=== PATIENT | male | born 1945 | race Caucasian/White ===

== ENCOUNTER 2017-05-21 16:16 | Emergency (ER) | payer MEDICARE, MEDICAID ==
[2017-05-21 16:57] LABS: ABSOLUTE BASOPHILS # (AUTO) 0.1 10^3/uL (0.0-0.2); ABSOLUTE EOSINOPHILS # (AUTO) 0.1 10^3/uL (0.0-0.6); ABSOLUTE LYMPHOCYTES (AUTO) 0.9 10^3/uL (0.5-4.7); ABSOLUTE MONOCYTES (AUTO) 0.6 10^3/uL (0.1-1.4); ABSOLUTE NEUT (AUTO) 9.1 10^3/uL (1.7-8.2); BASOPHILS % (AUTO) 0.5 % (0-2); EOSINOPHILS % (AUTO) 0.7 % (0-6); HEMATOCRIT 52.4 % (37.9-51.0); HEMOGLOBIN 17.8 g/dL (13.5-17.0); LYMPHOCYTES % (AUTO) 8.2 % (13-45); MEAN CORPUSCULAR HGB CONC 34.1 g/dL (32.0-36.0); MEAN CORPUSCULAR VOLUME 85 fl (80-97); MONOCYTES % (AUTO) 5.7 % (3-13); RED BLOOD COUNT 6.16 10^6/uL (4.35-5.55); SEGMENTED NEUTROPHILS % (AUTO) 84.9 % (42-78); WHITE BLOOD COUNT 10.8 10^3/uL (4.0-10.5)
[2017-05-21 17:22] LABS: ALANINE AMINOTRANSFERASE 21 U/L (21-72); ALBUMIN 4.4 g/dL (3.5-5.0); ALKALINE PHOSPHATASE 127 U/L (38-126); ANION GAP 13 (5-19); ASPARTATE AMINO TRANSFERASE 23 U/L (17-59); BILIRUBIN,DIRECT 0.4 mg/dL (0.0-0.4); BILIRUBIN,TOTAL 1.3 mg/dL (0.2-1.3); BLOOD UREA NITROGEN 14 mg/dL (7-20); CARBON DIOXIDE 26 mmol/L (22-30); CHLORIDE 104 mmol/L (98-107); CREATININE RESULT 1.15 mg/dL (0.52-1.25); GLUCOSE 132 mg/dL (75-110); LIPASE 51.7 U/L (23-300); SODIUM 142.6 mmol/L (137-145)
--- NOTE | 2017-05-21 17:27 | ER Document Report ---
ED GI/ - General Mode of Arrival: Medic Information source: Patient, Relative - TRAVEL OUTSIDE OF THE [place] IN LAST 30 DAYS: No - HPI Patient complains to provider of: Abdominal pain Associated symptoms: Other - See above <ADAM LOYA - Last Filed: 05/21/17 18:56> <ELVIE HUTSON - Last Filed: 05/21/17 22:45> - General Chief Complaint: Abdominal Pain Stated Complaint: ABDOMINAL PAIN Time Seen by Provider: 05/21/17 16:34 Notes: Patient is a 72 year old male, with a past medical history including HTN and kidney stones, who presents to the emergency department complaining of abdominal pain onset this afternoon. Patient reports he was mowing the lawn around 0900 this morning with a push mower, after an hour he took a break and had some Gatorade, a little while later he had a Big Mac and a Mt. Dew. After resting for a half hour patient went outside to visit with his family, when he came back in about 30 minutes later he developed a sharp pain in his left side under his ribs that shoots down into his lower abdomen, per patient had also complained of the pain going into his testicles. Patient reports he felt nauseated and vomited up some of his previous meal. Patient reports the pain is exacerbated by deep breaths. Patient states this does not feel like his previous kidney stones. (ADAM LOYA) - Related Data Allergies/Adverse Reactions: No Known Allergies Allergy (Unverified 02/24/15 15:12) Past Medical History - General Information source: Patient - Social History Smoking Status: Never Smoker Frequency of alcohol use: None Drug Abuse: None Family History: Reviewed & Not Pertinent - Past Medical History Cardiac Medical History: Reports: Hx Hypercholesterolemia, Hx Hypertension Pulmonary Medical History: Reports: Hx Asthma Renal/ Medical History: Reports: Hx Kidney Stones GI Medical History: Reports: Hx Gastroesophageal Reflux Disease Surgical Hx: Negative - Immunizations Hx Diphtheria, Pertussis, Tetanus Vaccination: Yes <ADAM LOYA - Last Filed: 05/21/17 18:56> Review of Systems - Review of Systems Constitutional: No symptoms reported EENT: No symptoms reported Cardiovascular: No symptoms reported Respiratory: No symptoms reported Gastrointestinal: See HPI, Abdominal pain, Nausea, Vomiting Genitourinary: No symptoms reported Male Genitourinary: No symptoms reported Musculoskeletal: No symptoms reported Skin: No symptoms reported Hematologic/Lymphatic: No symptoms reported Neurological/Psychological: No symptoms reported -: Yes All other systems reviewed and negative <ADAM LOYA - Last Filed: 05/21/17 18:56> Physical Exam <ADAM LOYA - Last Filed: 05/21/17 18:56> <ELVIE HUTSON - Last Filed: 05/21/17 22:45> - Vital signs Vitals: Temp Resp 97.5 F 23 H 05/21/17 16:41 05/21/17 16:41 - Notes Notes: GENERAL: Alert, interacts well. No acute distress. HEAD: Normocephalic, atraumatic. EYES: Pupils equal, round, and reactive to light. Extraocular movements intact. ENT: Oral mucosa moist, tongue midline. NECK: Full range of motion. Supple. Trachea midline. LUNGS: Clear to auscultation bilaterally, no wheezes, rales, or rhonchi. No respiratory distress. HEART: Regular rate and rhythm. No murmurs, gallops, or rubs. ABDOMEN: Left lower quadrant tender to palpation. No guarding, rigidity, or rebound. No masses. Non-distended. Bowel sounds present in all 4 quadrants. EXTREMITIES: Moves all 4 extremities spontaneously. No edema, radial and dorsalis pedis pulses 2/4 bilaterally. No cyanosis. NEUROLOGICAL: Alert and oriented x3. Normal speech. PSYCH: Normal affect, normal mood. SKIN: Warm, dry, normal turgor. No rashes or lesions noted. (ADAM LOYA) Course - Laboratory Result Diagrams: 05/21/17 16:45 05/21/17 16:45 <ADAM LOYA - Last Filed: 05/21/17 18:56> - Laboratory Result Diagrams: 05/21/17 16:45 05/21/17 16:45 <ELVIE HUTSON - Last Filed: 05/21/17 22:45> - Re-evaluation Re-evalutation: 05/21/17 19:08 CBC shows hemoconcentration with a white count of 10.8 and hemoglobin 17.8, no true signs of infection, CMP grossly unremarkable, minimally elevated blood sugar 132 and this is not fasting, lipase normal, urinalysis shows trace ketones and large blood. This is consistent with the 4.2 mm partially obstructing calculus in the proximal left ureter however there is contrast identified distal to the calculus on delayed images. The stone should pass on its own, no indication for antibiotics or surgical intervention at this time, patient will to be treated with Percocet, Zofran, Flomax, Pyridium and discharged home with a urine strainer. (ELVIE HUTSON) - Vital Signs Vital signs: Temp Pulse Resp BP Pulse Ox 97.5 F 84 18 165/89 H 96 05/21/17 16:41 05/21/17 19:38 05/21/17 19:38 05/21/17 19:38 05/21/17 19:38 - Laboratory Laboratory results interpreted by me: 05/21/17 05/21/17 05/21/17 16:45 16:45 17:08 WBC 10.8 H RBC 6.16 H Hgb 17.8 H Hct 52.4 H Seg Neutrophils % 84.9 H Lymphocytes % 8.2 L Absolute Neutrophils 9.1 H Glucose 132 H Alkaline Phosphatase 127 H Urine Protein 30 H Urine Ketones TRACE H Urine Blood LARGE H Urine Urobilinogen 4.0 H Discharge <ADAM LOYA - Last Filed: 05/21/17 18:56> <ELVIE HUTSNO - Last Filed: 05/21/17 22:45> - Discharge Clinical Impression: Left ureteral calculus Condition: Stable Disposition: HOME, SELF-CARE Additional Instructions: Kidney Stone You are passing or have passed a kidney stone. These stones are usually due to increased calcium or uric acid concentrations in your urine. Stones within the kidney itself are not painful. The pain occurs as the stone leaves the kidney to pass down the long tube, called the ureter, leading to the bladder. If the stone is small, it will usually pass by itself. Most patients can pass the stone at home. You will usually receive medications for pain, nausea or vomiting, and sometimes a medication to assist in passing the kidney stone. However, if the pain is very severe or if vomiting prevents you from taking oral pain medications, you may need to return for further treatment. Drink three or four quarts of fluids per day. You will be given pain medication (if needed) and urine strainers. Strain all your urine to see if the stone passes. If your doctor has asked you to bring the stone in for analysis, return with the stone once it has passed. Return if pain or vomiting become severe, if you develop a high fever, if you are unable to pass your urine, or if other unusual symptoms occur. Prescriptions: Ondansetron [Zofran Odt 4 mg Tablet] 1 - 2 tab PO Q4H PRN #15 tab.rapdis PRN Reason: For Nausea/Vomiting Oxycodone HCl/Acetaminophen [Percocet 5-325 mg Tablet] 1 - 2 tab PO Q4H PRN #15 tablet PRN Reason: Phenazopyridine HCl [Pyridium 200 mg Tablet] 200 mg PO TID #15 tablet Tamsulosin HCl [Flomax 0.4 mg Cap.sr] 0.4 mg PO DAILY #7 cap.sr.24h Referrals: CHLOE ORANTES MD [Primary Care Provider] - Follow up as needed Scribe Attestation: 05/21/17 22:45 I personally performed the services described in the documentation, reviewed and edited the documentation which was dictated to the scribe in my presence, and it accurately records my words and actions. (ELVIE HUTSON) Scribe Documentation - Scribe Written by Kenton:: kenton Eli, 05/21/17, 1304 acting as scribe for :: Kika <ADAM LOYA - Last Filed: 05/21/17 18:56>
[2017-05-21 17:35] LABS: APPEARANCE,URINE SLIGHTLY-CLOUDY; BILIRUBIN,URINE NEGATIVE (NEGATIVE); GLUCOSE, URINE NEGATIVE (NEGATIVE); KETONES,URINE TRACE mg/dL (NEGATIVE); LEUKOCYTE ESTERASE,URINE NEGATIVE (NEGATIVE); NITRITE,URINE NEGATIVE (NEGATIVE); PROTEIN,URINE 30 mg/dL (NEGATIVE); URINE SPECIFIC GRAVITY 1.013
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
[2017-05-21 19:41] VITALS: BP 165/89
== END 2017-05-21 19:39 | disposition home or self-care (01) ==
LOC: ER 16:16
DX: N20.1 Calculus of ureter (principal); R10.9 Unspecified abdominal pain; I10 Essential (primary) hypertension; E78.00 Pure hypercholesterolemia, unspecified; J45.909 Unspecified asthma, uncomplicated; K21.9 Gastro-esophageal reflux disease without esophagitis; Z87.442 Personal history of urinary calculi
CPT/HCPCS: 36415; 74177; 80053; 81001; 83690; 85025; 99284

== ENCOUNTER 2017-05-25 17:34 | Emergency (ER) | payer MEDICARE, MEDICAID ==
[2017-05-25 17:43] VITALS: BP 161/86
[2017-05-25] MEDS ORDERED: KETOROLAC TROMETHAMINE INJ/PF 30 MG/1 ML SDV IV ONE (17:54)
--- NOTE | 2017-05-25 18:01 | ER Document Report ---
ED General - General Chief Complaint: Flank Pain Stated Complaint: ABDOMINAL PAIN Time Seen by Provider: 05/25/17 17:55 TRAVEL OUTSIDE OF THE [place] IN LAST 30 DAYS: No - HPI Patient complains to provider of: left flank pain Notes: Pleasant man yes or diagnosed with a left renal calculi approximately 2 years ago presents with continued pain. Patient states has moved significantly from the left upper quadrant down to near his left groin. Patient states he was given some Flomax but the pain is very very intense today. Pain was a 10/10 constantly nauseous. Patient states the pain is come down now but was very bad. Patient arrives via EMS. Denies fever chills dysuria or diarrhea. - Related Data Allergies/Adverse Reactions: No Known Allergies Allergy (Verified 05/25/17 17:42) Past Medical History - Social History Smoking Status: Former Smoker Family History: Reviewed & Not Pertinent - Past Medical History Cardiac Medical History: Reports: Hx Hypercholesterolemia, Hx Hypertension Pulmonary Medical History: Reports: Hx Asthma Renal/ Medical History: Reports: Hx Kidney Stones. Denies: Hx Peritoneal Dialysis GI Medical History: Reports: Hx Gastroesophageal Reflux Disease - Immunizations Hx Diphtheria, Pertussis, Tetanus Vaccination: Yes Review of Systems - Review of Systems Constitutional: No symptoms reported EENT: No symptoms reported Cardiovascular: No symptoms reported Respiratory: No symptoms reported Gastrointestinal: No symptoms reported Genitourinary: No symptoms reported Male Genitourinary: No symptoms reported. denies: Testicular pain Musculoskeletal: No symptoms reported, Back pain Skin: No symptoms reported Hematologic/Lymphatic: No symptoms reported Neurological/Psychological: No symptoms reported Physical Exam - Vital signs Vitals: Temp Pulse Resp BP Pulse Ox 97.4 F 93 18 161/86 H 93 05/25/17 17:40 05/25/17 17:40 05/25/17 17:40 05/25/17 17:40 05/25/17 17:40 Interpretation: Normal - General General appearance: Appears well, Alert - HEENT Head: Normocephalic, Atraumatic Eyes: Normal Pupils: PERRL - Respiratory Respiratory status: No respiratory distress Chest status: Nontender Breath sounds: Normal Chest palpation: Normal - Cardiovascular Rhythm: Regular Heart sounds: Normal auscultation Murmur: No - Abdominal Inspection: Normal Distension: No distension Bowel sounds: Normal Tenderness: Nontender Organomegaly: No organomegaly - Back Back: Normal, CVA tenderness - Extremities General upper extremity: Normal inspection, Nontender, Normal color, Normal ROM , Normal temperature General lower extremity: Normal inspection, Nontender, Normal color, Normal ROM , Normal temperature, Normal weight bearing. No: Ben's sign - Neurological Neuro grossly intact: Yes Cognition: Normal Orientation: AAOx4 Zeyad Coma Scale Eye Opening: Spontaneous [place] Coma Scale Verbal: Oriented [place] Coma Scale Motor: Obeys Commands Zeyad Coma Scale Total: 15 Speech: Normal Motor strength normal: LUE, RUE, LLE, RLE Sensory: Normal - Psychological Associated symptoms: Normal affect, Normal mood - Skin Skin Temperature: Warm Skin Moisture: Dry Skin Color: Normal Course - Re-evaluation Re-evalutation: 05/25/17 18:05 Pleasant man with known kidney stone present with more pain. Pain is now resolved given IV ketorolac. Also given prescription for ibuprofen. Patient has access to a great deal of Percocet that he did not like how they made him feel. Encourage patient to try taking ibuprofen and Tylenol - Vital Signs Vital signs: Temp Pulse Resp BP Pulse Ox 97.4 F 93 18 161/86 H 93 05/25/17 17:40 05/25/17 17:40 05/25/17 17:40 05/25/17 17:40 05/25/17 17:40 Discharge - Discharge Clinical Impression: Left ureteral calculus Condition: Stable Disposition: HOME, SELF-CARE Instructions: Kidney Stone ([facility]) Prescriptions: Ibuprofen 800 mg PO Q6H 3 Days
== END 2017-05-25 18:05 | disposition home or self-care (01) ==
LOC: ER 17:34
DX: N20.1 Calculus of ureter (principal); R10.9 Unspecified abdominal pain; Z79.899 Other long term (current) drug therapy; Z87.891 Personal history of nicotine dependence
CPT/HCPCS: 99284; 96374; J1885

== ENCOUNTER 2018-09-22 16:38 | Emergency (ER) | payer MEDICARE, MEDICAID ==
[2018-09-22] MEDS ORDERED: DIPHENHYDRAMINE HCL 25 MG CAPSULE PO ONE (17:43)
[2018-09-22] MEDS ORDERED: PROCHLORPERAZINE MALEATE 10 MG TABLET PO ONE (17:43)
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
--- NOTE | 2018-09-22 18:56 | RADIOLOGY REPORT (SQ) ---
EXAM DESCRIPTION: CT CERVICAL SPINE WITHOUT COMPLETED DATE/TIME: 09/22/2018 6:33 pm REASON FOR STUDY: Pain in the posterior lateral neck/lateral c-spine COMPARISON: None. TECHNIQUE: Axial images acquired through the cervical spine without intravenous contrast. Images re viewed with lung, soft tissue and bone windows. Reconstructed coronal and sagittal MPR images review ed. Images stored on PACS. All CT scanners at this facility use dose modulation, iterative reconstruction, and/or weight based d osing when appropriate to reduce radiation dose to as low as reasonably achievable (ALARA). [facility]: Dose Right [facility]: CareDose [facility]: Dose Right [facility]: Teradose 4D [facility]: [employer] RADIATION DOSE: CT Rad equipment meets quality standard of care and radiation dose reduction techniq ues were employed. CTDIvol: 19.6 mGy. DLP: 417 mGy-cm. mGy. LIMITATIONS: None. FINDINGS: ALIGNMENT: Anatomic. MINERALIZATION: Normal. VERTEBRAL BODIES: No fractures or dislocation. DISCS: Multilevel disc space narrowing with osteophytes. FACETS, LATERAL MASSES, POSTERIOR ELEMENTS: Facet arthropathy. No fractures. No dislocation. No ac native findings. HARDWARE: None in the spine. VISUALIZED RIBS: No fractures. LUNG APICES AND SOFT TISSUES: No significant or acute findings. OTHER: No other significant finding. IMPRESSION: CHRONIC DEGENERATIVE CHANGES. NO ACUTE FINDINGS. TECHNICAL DOCUMENTATION: JOB ID: [id number] Quality ID # [id number]: Final reports with documentation of one or more dose reduction techniques (e.g., Au tomated exposure control, adjustment of the mA and/or kV according to patient size, use of iterative reconstruction technique) 2010 [employer]- All Rights Reserved Reading location - IP/workstation name: [email or web address]
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
[2018-09-22 19:17] LABS: ABSOLUTE EOSINOPHILS # (AUTO) 0.1 10^3/uL (0.0-0.6); ABSOLUTE LYMPHOCYTES (AUTO) 2.2 10^3/uL (0.5-4.7); ABSOLUTE MONOCYTES (AUTO) 0.7 10^3/uL (0.1-1.4); ABSOLUTE NEUT (AUTO) 5.1 10^3/uL (1.7-8.2); BASOPHILS % (AUTO) 0.4 % (0-2); EOSINOPHILS % (AUTO) 1.7 % (0-6); HEMOGLOBIN 18.3 g/dL (13.5-17.0); MEAN CORPUSCULAR HEMOGLOBIN 28.9 pg (27.0-33.4); MEAN CORPUSCULAR HGB CONC 35.1 g/dL (32.0-36.0); MEAN CORPUSCULAR VOLUME 82 fl (80-97); PLATELET COUNT 178 10^3/uL (150-450); RED BLOOD COUNT 6.31 10^6/uL (4.35-5.55); RED CELL DISTRIBUTION WIDTH 14.2 % (11.5-14.0); SEGMENTED NEUTROPHILS % (AUTO) 61.9 % (42-78); TOTAL CELLS COUNTED % (AUTO) 100 %; WHITE BLOOD COUNT 8.3 10^3/uL (4.0-10.5)
[2018-09-22] MEDS ORDERED: FUROSEMIDE INJ/PF 20 MG/2 ML SDV IV ONE (19:17)
[2018-09-22 19:31] LABS: ALANINE AMINOTRANSFERASE 27 U/L (21-72); ALBUMIN 4.3 g/dL (3.5-5.0); ALKALINE PHOSPHATASE 125 U/L (38-126); ANION GAP 15 (5-19); ASPARTATE AMINO TRANSFERASE 30 U/L (17-59); BILIRUBIN,DIRECT 0.3 mg/dL (0.0-0.4); BLOOD UREA NITROGEN 16 mg/dL (7-20); CALCIUM 9.4 mg/dL (8.4-10.2); CARBON DIOXIDE 26 mmol/L (22-30); CHLORIDE 100 mmol/L (98-107); CREATINE KINASE 83 U/L (55-170); GLUCOSE 105 mg/dL (75-110); POTASSIUM 4.4 mmol/L (3.6-5.0); SODIUM 141.4 mmol/L (137-145); TOTAL PROTEIN 8.4 g/dL (6.3-8.2)
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
[2018-09-22 19:47] LABS: CREATINE KINASE MB 1.65 ng/mL (<4.55); NT PRO BNP 113 pg/mL (5-900)
[2018-09-22 19:52] LABS: TROPONIN I < 0.012 ng/mL
[2018-09-22 21:28] VITALS: BP 141/72
== END 2018-09-22 21:29 | disposition home or self-care (01) ==
LOC: ER 16:38
DX: I10 Essential (primary) hypertension (principal); R51 Headache; J45.909 Unspecified asthma, uncomplicated
CPT/HCPCS: 99285; 96374; 36415; 82553; 82550; 85025; 80053; 84484; 83880; 71046; 70450; 72125; A9270 ×2; J1940; S0183

== ENCOUNTER 2019-01-01 06:21 | Day surgery (SDC) | payer MEDICARE, MEDICAID ==
[~2019-01-01 06:21] MED LIST: KETOROLAC TROMETHAMINE 0.45% 4 DROP/0.4 ML DROPERETTE OD PRN
[2019-01-01] MEDS: TETRACAINE HCL 0.5% OPH SOLN 4 ML OD PRN ×3 (06:54→07:25)
[2019-01-01] MEDS: TROPICAMIDE 1% OPH SOLN 3 ML OD PRN ×3 (06:55→07:20)
[2019-01-01] MEDS: CYCLOPENTOLATE 0.2%/PHENYLEPHRINE 1% OPH SOLN 2 ML OD PRN ×3 (06:55→07:20)
[2019-01-01] MEDS: BESIFLOXACIN HCL 0.6% OPH SUSP 5 ML BOTTLE OD PRN ×4 (06:55→07:50)
[2019-01-01] MEDS ORDERED: MIDAZOLAM 2 MG/2 ML INJ ONE (07:15)
[2019-01-01] MEDS ORDERED: EPINEPHRINE INJ/PF 1 MG/1 ML AMPULE ONE (07:16)
[2019-01-01] MEDS ORDERED: LIDOCAINE 1%/PHENYLEPHRINE 1.5% 1 ML VIAL ONE (07:17)
[2019-01-01] MEDS ORDERED: CHONDR SU A NA/HYALUR INTRAOC KIT (SURGICARE) ONE (07:17)
--- NOTE | 2019-01-01 20:23 | [facility] OPERATIVE REPORT E ---
[facility] Operative Report NAME: MYA MEDLEY AGE: 73Y DATE OF SURGERY: 01/01/2019 ROOM: PREOPERATIVE DIAGNOSIS: CATARACT, RIGHT EYE. POSTOPERATIVE DIAGNOSIS: CATARACT, RIGHT EYE. OPERATION: Cataract extraction with insertion of an IOL of the right eye. SURGEON: PAMELA BARBER M.D. ANESTHESIA: Topical. PROCEDURE: After obtaining appropriate consent, the patient's right eye was prepped and draped in sterile fashion as well as the surgeon in a sterile manner and cataract surgery was started. First a paracentesis blade was used to make a side-port incision. Viscoelastic was used to inflate the anterior chamber. Next a 2.4 mm incision was made with a 2.4 mm blade, clear corneal temporally. A continuous capsulorrhexis was made using a cystotome and Utrata forceps. Following this hydrodissection was carried out to make the lens fully loose and mobile and it was rotated 90 degrees. Following this, a bivese-bdj-uonhkna technique was used to phacoemulsify the lens with a CDE of 4.39. The remaining cortex was removed with irrigation/aspiration. Provisc was instilled into the capsular bag to inflate the bag. A SN60WF, 22.5 diopter lens was placed. The remaining viscoelastic material was removed with irrigation/aspiration. Following this, the incision was found to be watertight. Besivance was instilled into the eye and a protective shield was placed over the eye. The patient returned to the postoperative recovery in stable condition. DICTATING PHYSICIAN: PAMELA BARBER M.D. [id number] PHY#: [id number] ID: [id number] JOB#: [id number] ACCT: [id number] cc:PAMELA BARBER M.D. >
--- NOTE | 2019-01-01 20:23 | [facility] DISCHARGE SUMMARY E ---
[facility] Discharge Summary NAME: MYA MEDLEY AGE: 73Y ADMITTED: 01/01/2019 DISCHARGED: 01/01/2019 DIAGNOSIS: Cataract, right eye. SUMMARY: This is a 73-year-old male who underwent cataract extraction, right eye. He underwent surgery because he was having difficulty seeing words on the television. DISCHARGE INSTRUCTIONS: He should be on a regular diet, no bending at his waist, and no heavy lifting. He should use his Vigamox, Ketorolac, and Durezol at 3 p.m. and 8 p.m. and sleep with a rigid shield. I will see him for his 1 day postoperative tomorrow. DICTATING PHYSICIAN: PAMELA BARBER M.D. [id number] PHY#: [id number] ID: [id number] JOB#: [id number] ACCT: [id number] cc:PAMELA BARBER M.D. >
== END 2019-01-01 08:25 | disposition home or self-care (01) ==
LOC: SC 06:21
PROVIDERS: ATTEND Internal Medicine
DX: H25.11 Age-related nuclear cataract, right eye (principal); I10 Essential (primary) hypertension; K21.9 Gastro-esophageal reflux disease without esophagitis; Z79.899 Other long term (current) drug therapy; Z79.82 Long term (current) use of aspirin; F17.210 Nicotine dependence, cigarettes, uncomplicated; G47.30 Sleep apnea, unspecified
CPT/HCPCS: 66984; V2632; J2250; J3490 ×2; A9270; J0171; J2370; 142

== ENCOUNTER 2019-01-20 07:54 | Day surgery (SDC) | payer MEDICARE, MEDICAID ==
[~2019-01-20 07:54] MED LIST changes: -KETOROLAC TROMETHAMINE 0.45% 4 DROP/0.4 ML DROPERETTE OD PRN; +KETOROLAC TROMETHAMINE 0.45% 4 DROP/0.4 ML DROPERETTE OS PRN
[2019-01-20] MEDS ORDERED: CHONDR SU A NA/HYALUR INTRAOC KIT (SURGICARE) ONE (08:14)
[2019-01-20] MEDS ORDERED: LIDOCAINE 1%/PHENYLEPHRINE 1.5% 1 ML VIAL ONE (08:14)
[2019-01-20] MEDS ORDERED: EPINEPHRINE INJ/PF 1 MG/1 ML AMPULE ONE (08:14)
[2019-01-20] MEDS: TETRACAINE HCL 0.5% OPH SOLN 4 ML OS PRN ×3 (08:51→09:24)
[2019-01-20] MEDS: TROPICAMIDE 1% OPH SOLN 3 ML OS PRN ×3 (08:52→09:11)
[2019-01-20] MEDS: BESIFLOXACIN HCL 0.6% OPH SUSP 5 ML BOTTLE OS PRN ×4 (08:52→09:43)
[2019-01-20] MEDS: CYCLOPENTOLATE 0.2%/PHENYLEPHRINE 1% OPH SOLN 2 ML OS PRN ×3 (08:52→09:11)
[2019-01-20] MEDS ORDERED: ONDANSETRON HCL INJ/PF 4 MG/2 ML SDV ONE (09:07)
[2019-01-20] MEDS ORDERED: FENTANYL CITRATE INJ/PF 100 MCG/2 ML AMPUL ONE (09:07)
[2019-01-20] MEDS ORDERED: MIDAZOLAM 2 MG/2 ML INJ ONE (09:07)
[2019-01-20] MEDS: DORZOLAMIDE HCL 2%/TIMOLOL MALEAT 0.5% OPH SOLN 10 ML OS PRN ×2 (09:43)
--- NOTE | 2019-01-20 11:49 | [facility] DISCHARGE SUMMARY E ---
[facility] Discharge Summary NAME: MYA MEDLEY AGE: 73Y ADMITTED: 01/20/2019 DISCHARGED: 01/20/2019 HISTORY: This is a 73-year-old male who underwent cataract extraction of the left eye. DIAGNOSIS: Cataract, left eye. HOSPITAL COURSE: He underwent surgery because he was having difficulty seeing road signs. DISCHARGE INSTRUCTIONS: He should be on a regular diet. No bending at his waist. No heavy lifting. He should use Vigamox, ketorolac, and Pred Forte at 3 p.m. and 8 p.m. and see me for a one day postoperative visit. DICTATING PHYSICIAN: PAMELA BARBER M.D. [id number] PHY#: [id number] ID: [id number] JOB#: [id number] ACCT: [id number] cc:PAMELA BARBER M.D. >
--- NOTE | 2019-01-20 11:49 | [facility] OPERATIVE REPORT E ---
[facility] Operative Report NAME: MYA MEDLEY AGE: 73Y DATE OF SURGERY: 01/20/2019 ROOM: PREOPERATIVE DIAGNOSIS: CATARACT, LEFT EYE. POSTOPERATIVE DIAGNOSIS: CATARACT, LEFT EYE. OPERATION: Cataract extraction with insertion of an IOL of the left eye. SURGEON: PAMELA BARBER M.D. ANESTHESIA: Topical. PROCEDURE: After obtaining appropriate consent, the patient's left eye was prepped and draped in sterile fashion as well as the surgeon in a sterile manner and cataract surgery was started. First a paracentesis blade was used to make a side-port incision. Viscoelastic was used to inflate the anterior chamber. Next a 2.4 mm incision was made with a 2.4 mm blade, clear corneal temporally. A continuous capsulorrhexis was made using a cystotome and Utrata forceps. Following this hydrodissection was carried out to make the lens fully loose and mobile and it was rotated 90 degrees. Following this, a wgajnl-wmr-ezhmakw technique was used to phacoemulsify the lens with a CDE of 5.74. The remaining cortex was removed with irrigation/aspiration. Provisc was instilled into the capsular bag to inflate the bag. A SN60WF, 22.5 diopter lens was placed. The remaining viscoelastic material was removed with irrigation/aspiration. Following this, the incision was found to be watertight. Besivance was instilled into the eye and a protective shield was placed over the eye. The patient returned to the postoperative recovery in stable condition. DICTATING PHYSICIAN: PAMELA BARBER M.D. [id number] PHY#: [id number] ID: [id number] JOB#: [id number] ACCT: [id number] cc:PAMELA BARBER M.D. >
== END 2019-01-20 10:26 | disposition home or self-care (01) ==
LOC: SC 07:54
PROVIDERS: ATTEND Internal Medicine
DX: H25.12 Age-related nuclear cataract, left eye (principal); Z96.1 Presence of intraocular lens; I10 Essential (primary) hypertension; K21.9 Gastro-esophageal reflux disease without esophagitis; G47.30 Sleep apnea, unspecified; Z79.82 Long term (current) use of aspirin; Z79.899 Other long term (current) drug therapy
CPT/HCPCS: 66984; V2632; J2250; J3490 ×2; A9270; J0171; J3010; J2405; J2370; 142

== ENCOUNTER 2019-04-30 07:08 | Emergency (ER) | payer MEDICARE, MEDICAID ==
[2019-04-30] MEDS ORDERED: ONDANSETRON HCL INJ/PF 4 MG/2 ML SDV IV ONE (08:43)
[2019-04-30] MEDS ORDERED: NORMAL SALINE 1000 ML 1,000 ML IV ONE (08:43)
[2019-04-30] MEDS ORDERED: MORPHINE SULFATE 10 MG/ML INJ IV ONE (08:43)
--- NOTE | 2019-04-30 08:50 | ER Document Report ---
ED General - General Chief Complaint: Abdominal Pain >50 Stated Complaint: VOMITING Time Seen by Provider: 04/30/19 08:18 Primary Care Provider: CHLOE ORANTES MD [Primary Care Provider] - Follow up as needed Notes: 74-year-old male with hypertension and a "enlarged heart" presents to the emergency department with chief complaint of left lower quadrant abdominal pain and vomiting x2 since last night. Patient said it began at 11 PM and the pain is constant and sharp. Patient is also complaint of abdominal distention. Patient complains of hot and cold spells, denies fever, denies headache, denies confusion or altered mental status, complains of nausea with vomiting, denies any chest pain or shortness of breath, complained of left flank pain last night that is now migrated to the left lower quadrant, denies any urinary symptoms, last bowel movement 9 PM last night. No other complaints. TRAVEL OUTSIDE OF THE [place] IN LAST 30 DAYS: No - Related Data Allergies/Adverse Reactions: No Known Allergies Allergy (Verified 04/30/19 08:26) Past Medical History - Social History Smoking Status: Unknown if Ever Smoked Family History: Reviewed & Not Pertinent Patient has suicidal ideation: No Patient has homicidal ideation: No - Past Medical History Cardiac Medical History: Reports: Hx Hypercholesterolemia, Hx Hypertension - MEDS Denies: Hx Heart Attack Pulmonary Medical History: Reports: Hx Asthma - YEARS AGO Neurological Medical History: Denies: Hx Cerebrovascular Accident, Hx Seizures Renal/ Medical History: Reports: Hx Kidney Stones. Denies: Hx Peritoneal Dialysis GI Medical History: Reports: Hx Gastroesophageal Reflux Disease. Denies: Hx Hepatitis, Hx Hiatal Hernia, Hx Ulcer Infectious Medical History: Denies: Hx Hepatitis Past Surgical History: Reports: Hx Orthopedic Surgery - Knee and back sx. Denies: Hx Open Heart Surgery, Hx Pacemaker - Immunizations Hx Diphtheria, Pertussis, Tetanus Vaccination: Yes Review of Systems - Review of Systems Constitutional: See HPI EENT: No symptoms reported Cardiovascular: See HPI Respiratory: See HPI Gastrointestinal: See HPI Genitourinary: See HPI Male Genitourinary: No symptoms reported Musculoskeletal: See HPI Skin: No symptoms reported Hematologic/Lymphatic: No symptoms reported Neurological/Psychological: See HPI Physical Exam - Vital signs Vitals: Temp Pulse Resp BP Pulse Ox 98.2 F 96 22 H 164/76 H 96 04/30/19 07:12 04/30/19 07:12 04/30/19 07:12 04/30/19 07:12 04/30/19 07:12 - Notes Notes: PHYSICAL EXAMINATION: Reviewed vital signs and charting by RN GENERAL: Alert, interacts well. No acute distress. HEAD: Normocephalic, atraumatic. EYES: Patient with eyes closed secondary to fatigue, pupils are equal and round when opened ENT: Oral mucosa moist NECK: Full range of motion. Trachea midline. LUNGS: Clear to auscultation bilaterally, no wheezes, rales, or rhonchi. No respiratory distress. HEART: Regular rate and rhythm. No murmur ABDOMEN: soft, tenderness to palpation left lower quadrant with some involuntary guarding, not rigid. ++ distention. Bowel sounds present EXTREMITIES: Moves all 4 extremities spontaneously. No edema, No cyanosis. SKIN: Warm, dry, normal turgor. No rashes or lesions noted. Course - Re-evaluation Re-evalutation: 04/30/19 08:49 Patient appears fatigued and in no acute distress. Work-up has been initiated to include a CT abdomen/pelvis with IV contrast. 04/30/19 11:55 CT abdomen/pelvis did show a 9.2 mm distal ureteral stone on the left side. This is consistent with the patient's pain pattern. Presents with findings consistent with acute nephrolithiasis. Urinalysis does show hematuria. Laboratory otherwise unremarkable. Pain was able to be controlled here in the emergency department. Patient is tolerating oral intake. Clinical history is not consistent with an acute abdominal aneurysm or dissection, NM, or pulmonary embolus. Urinalysis does not show findings consistent with an infected stone. Vitals have remained within normal limits. Patient will be discharged with recommendations to follow-up with urology, pain medications, and return precautions. They are in agreement with this plan and verbalized indications return to emergency department. - Vital Signs Vital signs: Temp Pulse Resp BP Pulse Ox 98.2 F 96 18 146/79 H 94 04/30/19 07:12 04/30/19 07:12 04/30/19 11:09 04/30/19 11:09 04/30/19 11:09 - Laboratory Result Diagrams: 04/30/19 09:05 04/30/19 09:05 Laboratory results interpreted by me: 04/30/19 04/30/19 04/30/19 09:05 09:05 09:05 WBC 12.8 H RBC 6.16 H Hgb 17.7 H Seg Neutrophils % 85.0 H Lymphocytes % 7.5 L Absolute Neutrophils 10.8 H Glucose 118 H Total Bilirubin 1.5 H Urine Protein 30 H Urine Ketones 20 H Urine Blood MODERATE H Urine Urobilinogen 2.0 H Discharge - Discharge Clinical Impression: Kidney stone on left side Condition: Good Disposition: HOME, SELF-CARE Instructions: Abdominal Pain ([facility]) Additional Instructions: Your symptoms should improve over the course of the next one week. If you continue to have pain for greater than one week or your pain is not controlled with the pain medications that you have been sent home with you need to return to the emergency department. Please also return if you develop fever, persistent vomiting, or any other symptoms that are concerning to you. You should take ibuprofen 600 mg every 6 hours and use the oral morphine as prescribed only for pain not controlled by ibuprofen. You've been given Zofran to assist with nausea. Please follow-up with urology in the next 3-5 days. Referrals: CHLOE ORANTES MD [Primary Care Provider] - Follow up as needed
[2019-04-30 09:21] LABS: ABSOLUTE BASOPHILS # (AUTO) 0.1 10^3/uL (0.0-0.2); ABSOLUTE MONOCYTES (AUTO) 0.9 10^3/uL (0.1-1.4); ABSOLUTE NEUT (AUTO) 10.8 10^3/uL (1.7-8.2); BASOPHILS % (AUTO) 0.4 % (0-2); EOSINOPHILS % (AUTO) 0.3 % (0-6); HEMOGLOBIN 17.7 g/dL (13.5-17.0); LYMPHOCYTES % (AUTO) 7.5 % (13-45); MEAN CORPUSCULAR HEMOGLOBIN 28.6 pg (27.0-33.4); MEAN CORPUSCULAR HGB CONC 35.3 g/dL (32.0-36.0); MEAN CORPUSCULAR VOLUME 81 fl (80-97); MONOCYTES % (AUTO) 6.8 % (3-13); PLATELET COUNT 187 10^3/uL (150-450); RED BLOOD COUNT 6.16 10^6/uL (4.35-5.55); RED CELL DISTRIBUTION WIDTH 13.8 % (11.5-14.0); TOTAL CELLS COUNTED % (AUTO) 100 %; WHITE BLOOD COUNT 12.8 10^3/uL (4.0-10.5)
[2019-04-30 09:34] LABS: ALANINE AMINOTRANSFERASE 29 U/L (21-72); ALBUMIN 4.2 g/dL (3.5-5.0); ALKALINE PHOSPHATASE 112 U/L (38-126); ANION GAP 10 (5-19); ASPARTATE AMINO TRANSFERASE 27 U/L (17-59); BILIRUBIN,DIRECT 0.2 mg/dL (0.0-0.4); BILIRUBIN,TOTAL 1.5 mg/dL (0.2-1.3); BLOOD UREA NITROGEN 18 mg/dL (7-20); CALCIUM 9.2 mg/dL (8.4-10.2); CARBON DIOXIDE 28 mmol/L (22-30); CHLORIDE 100 mmol/L (98-107); GLUCOSE 118 mg/dL (75-110); LIPASE 34.2 U/L (23-300); POTASSIUM 4.2 mmol/L (3.6-5.0); SODIUM 137.7 mmol/L (137-145); TOTAL PROTEIN 7.7 g/dL (6.3-8.2)
--- NOTE | 2019-04-30 10:53 | RADIOLOGY REPORT (SQ) ---
EXAM DESCRIPTION: CT ABD/PELVIS WITH IV ONLY COMPLETED DATE/TIME: 04/30/2019 10:17 am REASON FOR STUDY: LLQ abd pain/ bloating COMPARISON: None. TECHNIQUE: CT scan of the abdomen and pelvis performed using helical scanning technique with dynamic intravenous contrast injection. No oral contrast. Images reviewed with lung, soft tissue, and bone windows. Reconstructed coronal and sagittal MPR images reviewed. Delayed images for evaluation of the urinary system also acquired. All images stored on PACS. All CT scanners at this facility use dose modulation, iterative reconstruction, and/or weight based d osing when appropriate to reduce radiation dose to as low as reasonably achievable (ALARA). [facility]: Dose Right [facility]: CareDose [facility]: Dose Right [facility]: Teradose 4D [facility]: [employer] CONTRAST TYPE AND DOSE: contrast/concentration: Isovue 350.00 mg/ml; Total Contrast Delivered: 95.0 ml; Total Saline Delivered: 71.0 ml RENAL FUNCTION: Creatinine 1.2 RADIATION DOSE: CT Rad equipment meets quality standard of care and radiation dose reduction techniq ues were employed. CTDIvol: 9.9 - 13.4 mGy. DLP: 1371 mGy-cm.. LIMITATIONS: None. FINDINGS: On axial image 68 and coronal image 41, a 10 mm ureteral calculus is present at the level of the sacral promontory. This causes mild left hydronephrosis and hydroureter with perinephric stra nding. There is decreased contrast enhancement of the left kidney as compared to the right. Elsewhere in the left kidney, a 4 mm lower pole intrarenal nonobstructive stone is present on image 4 2. No left renal masses or cysts. LOWER CHEST: No significant findings. No nodules or infiltrates. LIVER: Normal size. No masses. No dilated ducts. SPLEEN: Normal size. No focal lesions. PANCREAS: No masses. No significant calcifications. No adjacent inflammation or peripancreatic fluid collections. Pancreatic duct not dilated. GALLBLADDER: No identified stones by CT criteria. No inflammatory changes to suggest cholecystitis. ADRENAL GLANDS: No significant masses or asymmetry. RIGHT KIDNEY AND URETER: No solid masses. No significant calcifications. No hydronephrosis or hyd roureter. LEFT KIDNEY AND URETER: As above AORTA AND VESSELS: No aneurysm. No dissection. Renal arteries, SMA, celiac without stenosis. RETROPERITONEUM: No retroperitoneal adenopathy, hemorrhage or masses. BOWEL AND PERITONEAL CAVITY: No masses or inflammatory changes. No free fluid or peritoneal masses. APPENDIX: Normal. PELVIS: No mass. No free fluid. Normal bladder. ABDOMINAL WALL: No masses. No hernias. BONES: No significant or acute findings. OTHER: No other significant finding. IMPRESSION: 10 mm distal left ureteral stone over the sacral promontory. Mild left hydronephrosis a nd hydroureter with moderate left perinephric stranding. TECHNICAL DOCUMENTATION: JOB ID: [id number] Quality ID # [id number]: Final reports with documentation of one or more dose reduction techniques (e.g., Au tomated exposure control, adjustment of the mA and/or kV according to patient size, use of iterative reconstruction technique) 2010 [employer]- All Rights Reserved Reading location - IP/workstation name: [email or web address]
[2019-04-30 11:21] LABS: AMORPHOUS SEDIMENT,URINE TRACE /HPF; APPEARANCE,URINE SLIGHTLY-CLOUDY; BILIRUBIN,URINE NEGATIVE (NEGATIVE); COLOR,URINE YELLOW; GLUCOSE, URINE NEGATIVE (NEGATIVE); KETONES,URINE 20 mg/dL (NEGATIVE); LEUKOCYTE ESTERASE,URINE NEGATIVE (NEGATIVE); NITRITE,URINE NEGATIVE (NEGATIVE); PROTEIN,URINE 30 mg/dL (NEGATIVE)
[2019-04-30] MEDS ORDERED: ONDANSETRON ODT 4 MG TAB (6 TAB/ER DISP) PO PRN (11:58)
[2019-04-30 12:10] VITALS: BP 144/74
--- NOTE | 2019-04-30 18:41 | EKG REPORT ---
SEVERITY:- ABNORMAL ECG - SINUS RHYTHM VENTRICULAR PREMATURE COMPLEX JULIA, CONSIDER BIATRIAL ABNORMALITIES RIGHT AXIS DEVIATION : Confirmed by: Robin Richard 30-Apr-2019 18:40:17
== END 2019-04-30 12:13 | disposition home or self-care (01) ==
LOC: ER 07:08
DX: N20.0 Calculus of kidney (principal); R10.32 Left lower quadrant pain; R11.2 Nausea with vomiting, unspecified; E78.00 Pure hypercholesterolemia, unspecified; I10 Essential (primary) hypertension; Z87.442 Personal history of urinary calculi
CPT/HCPCS: 93005; 99284; 96361; 96374; 96375; 36415; 87086; 83690; 85025; 87088; 80053; 81001; 84484; 87186; 74177; 93010; J2270; J2405; J7030; A9270